=== PATIENT | male | born 1970 | race Caucasian/White ===

== ENCOUNTER 2019-05-04 18:11 | Emergency (ER) | payer OTHER ==
[~2019-05-04] VITALS: Ht 170.2 cm; Wt 90.7 kg
--- NOTE | 2019-05-04 18:59 | ED.ADGEN ---
Past History Past Medical History: Alcoholism, Anxiety, Bipolar, Depression, Hepatitis, Other Smoking: Cigarettes Alcohol Use: Sober Drug Use: None Social History Past alcohol and drug use Adult General Chief Complaint Chief Complaint ".. I been in long term a while....27 yrs.. I don't want to go back.. I ve go t 15 months left.. four months a [employer]... I having a lot of anxiety .. and now some panic attacks... I ve been clean and off drugs since 2012.. I having a lot of new stressors.. [employer] assignment.. since middle of Mar.... 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 [employer].. I ve had Hept C.. got treatment twice.. and that reportedly thats gone.. but I have anxiety, panic attacks, PTSD, some Bipolar .. but with all the new stressors.. I am bouncing of the wall.. I was at [facility].. and just got too much. .. so I came here..." HPI HPI Patient is a 48 year old male inmate who presents with multiple complaints, anxious, feelings of panic, agitation, and complains of malaise. Patient currently a resident of [facility]. Patient does advise he had previous problems with drugs and alcohol. Has been on intermittent medications for bipolar disorder and panic attacks. Patient reports he had hepatitis C- had 2 previous courses of treatment reportedly now cured. Does have some residual scarring of liver with results and chronically low platelets. Patient denies any frequent caffeine use. Patient denies any illicit drug use. Does smoke tobacco. Patient states he does not vape. Review of Systems Review of Systems Constitutional: Denies fever or chills [] Eyes: Denies change in visual acuity, redness, or eye pain [] HENT: Denies nasal congestion or sore throat [] Respiratory: Denies cough or shortness of breath [] Cardiovascular: No additional information not addressed in HPI [] GI: Denies abdominal pain, nausea, vomiting, bloody stools or diarrhea [] : Denies dysuria or hematuria [] Musculoskeletal: Denies back pain or joint pain [] Integument: Denies rash or skin lesions [] Neurologic: Denies headache, focal weakness or sensory changes [] Endocrine: Denies polyuria or polydipsia [] All other systems were reviewed and found to be within normal limits, except as documented in this note. Family History Family History Noncontributory Current Medications Current Medications Current Medications Medications (Trade) Dose Ordered Sig/Kaushik Start Time Stop Time Status Last Admin Dose Admin Lorazepam (Ativan Inj) 2 mg 1X ONCE 05/04/19 20:30 05/04/19 20:31 DC 05/04/19 20:38 2 MG Allergies Allergies Allergies Coded Allergies Type Severity Reaction Last Updated Verified No Known Drug Allergies 05/04/19 No Physical Exam Physical Exam Constitutional: In acute emotional distress, non-toxic appearance. [] HENT: Normocephalic, atraumatic, bilateral external ears normal, oropharynx moist, no oral exudates, nose normal. [] Eyes: PERRLA, EOMI, conjunctiva normal, no discharge. [] Neck: Normal range of motion, no tenderness, supple, no stridor. [] Cardiovascular: Bradycardia Heart rate regular rhythm, no murmur [] Lungs & Thorax: Bilateral breath sounds equal apex with scattered wheezes on auscultation [] Abdomen: Bowel sounds normal, soft, no tenderness, no masses, no pulsatile masses. [] Skin: Warm, dry, no erythema, no rash. [Multiple tattoos. No petechiae Back: No tenderness, no CVA tenderness. [] Extremities: No tenderness, no cyanosis, no clubbing, ROM intact, no edema. [] Neurologic: Alert and oriented X 3, normal motor function, normal sensory function, no focal deficits noted. DTRs +2 patella and brachial. Psychologic: Affect anxious, judgement normal, mood depression.. []No suicidal ideation. No homicidal ideation. Current Patient Data Vital Signs Vital Signs Date Time Temp Pulse Resp B/P (MAP) Pulse Ox O2 Delivery O2 Flow Rate FiO2 05/04/19 21:58 67 16 123/81 (95) 100 Room Air 05/04/19 18:47 98.1 Lab Results Laboratory Tests Test 05/04/19 19:25 05/04/19 20:30 Urine Collection Type Unknown Urine Color Yellow Urine Clarity Clear Urine pH 7.0 Urine Specific [place] 1.020 Urine Protein Neg (NEG-TRACE) Urine Glucose (UA) Neg mg/dL (NEG) Urine Ketones (Stick) Neg mg/dL (NEG) Urine Blood Trace (NEG) Urine Nitrite Neg (NEG) Urine Bilirubin Neg (NEG) Urine Urobilinogen Dipstick 4 mg/dL (0.2 mg/dL) Urine Leukocyte Esterase Neg (NEG) Urine RBC Rare /HPF (0-2) Urine WBC Occ /HPF (0-4) Urine Squamous Epithelial Cells None /LPF Urine Bacteria 0 /HPF (0-FEW) Urine Opiates Screen Neg (NEG) Urine Methadone Screen Neg (NEG) Urine Barbiturates Neg (NEG) Urine Phencyclidine Screen Neg (NEG) Urine Amphetamine/Methamphetamine Neg (NEG) Urine Benzodiazepines Screen Neg (NEG) Urine Cocaine Screen Neg (NEG) Urine Cannabinoids Screen Neg (NEG) Urine Ethyl Alcohol Neg (NEG) White Blood Count 4.3 x10^3/uL (4.0-11.0) Red Blood Count 4.74 x10^6/uL (4.30-5.70) Hemoglobin 14.5 g/dL (13.0-17.5) Hematocrit 43.1 % (39.0-53.0) Mean Corpuscular Volume 91 fL (79-100) Mean Corpuscular Hemoglobin 31 pg (25-35) Mean Corpuscular Hemoglobin Concent 34 g/dL (31-37) Red Cell Distribution Width 14.3 % (11.5-14.5) Platelet Count 87 x10^3/uL (140-400) L Neutrophils (%) (Auto) 68 % (31-73) Lymphocytes (%) (Auto) 20 % (24-48) L Monocytes (%) (Auto) 9 % (0-9) Eosinophils (%) (Auto) 3 % (0-3) Basophils (%) (Auto) 1 % (0-3) Neutrophils # (Auto) 2.9 x10^3uL (1.8-7.7) Lymphocytes # (Auto) 0.8 x10^3/uL (1.0-4.8) L Monocytes # (Auto) 0.4 x10^3/uL (0.0-1.1) Eosinophils # (Auto) 0.1 x10^3/uL (0.0-0.7) Basophils # (Auto) 0.0 x10^3/uL (0.0-0.2) Sodium Level 144 mmol/L (136-145) Potassium Level 4.1 mmol/L (3.5-5.1) Chloride Level 107 mmol/L (98-107) Carbon Dioxide Level 29 mmol/L (21-32) Anion Gap 8 (6-14) Blood Urea Nitrogen 20 mg/dL (8-26) Creatinine 0.9 mg/dL (0.7-1.3) Estimated GFR (Cockcroft-Gault) 89.7 Glucose Level 76 mg/dL (70-99) Calcium Level 8.7 mg/dL (8.5-10.1) Total Bilirubin 0.6 mg/dL (0.2-1.0) Direct Bilirubin 0.2 mg/dL (0.0-0.2) Aspartate Amino Transferase (AST) 27 U/L (15-37) Alanine Aminotransferase (ALT) 25 U/L (16-63) Alkaline Phosphatase 113 U/L (46-116) Troponin I Quantitative < 0.017 ng/mL (0-0.055) Total Protein 7.6 g/dL (6.4-8.2) Albumin 3.8 g/dL (3.4-5.0) EKG EKG I interpretation EKG shows a sinus bradycardia at 58 bpm. No acute morphology. There is some J-point elevation V2 V3 V4 but no contralateral changes.[] Radiology/Procedures Radiology/Procedures [] Course & Med Decision Making Course & Med Decision Making Pertinent Labs and Imaging studies reviewed. (See chart for details) Patient encouraged follow-up at counseling center. Encouraged patient to take a mood stabilizer suspect has a component of bipolar disorder which exacerbates his anxiety, panic attacks and PTSD. Patient return of any concerns. [] Final Impression Final Impression 1. Panic Attack 2. Anxiety Disorder 3. PTSD 4. Bipolar 5. Hx. Hept. C- Treated 6. Thrombocytopenia-87 [] Dragon Disclaimer Dragon Disclaimer This electronic medical record was generated, in whole or in part, using a voice recognition dictation system. FILIBERTO CEBALLOS MD May 04, 2019 18:59
[2019-05-04 19:44] LABS: BARBITURATES NEG (NEG); BENZODIAZEPINES NEG (NEG); CANNABINOIDS NEG (NEG); COCAINE NEG (NEG); METHADONE NEG (NEG); OPIATES NEG (NEG); PHENCYCLIDINE NEG (NEG)
[2019-05-04 19:48] LABS: AMPHETAMINE/METHAMPHETAMINE NEG (NEG)
[2019-05-04 19:58] LABS: BILIRUBIN,URINE NEG (NEG); CLARITY,URINE CLEAR; COLOR,URINE YELLOW; GLUCOSE,URINE NEG (NEG)
[2019-05-04 19:59] LABS: BACTERIA,URINE 0 /HPF (0-FEW); NITRITE,URINE NEG (NEG); RBC,URINE RARE /HPF (0-2); UROBILINOGEN,URINE 4 mg/dL (0.2 mg/dL); WBC,URINE OCC /HPF (0-4)
[2019-05-04 20:49] LABS: BASO % 1 % (0-3); EOS # 0.1 x10^3/uL (0.0-0.7); EOS % 3 % (0-3); HEMATOCRIT 43.1 % (39.0-53.0); HEMOGLOBIN 14.5 g/dL (13.0-17.5); LYMPH # 0.8 x10^3/uL (1.0-4.8); LYMPH % 20 % (24-48); MEAN CORPUSCULAR HEMOGLOBIN 31 pg (25-35); MEAN CORPUSCULAR HGB CONC 34 g/dL (31-37); MEAN CORPUSCULAR VOLUME 91 fL (79-100); MONO # 0.4 x10^3/uL (0.0-1.1); MONO % 9 % (0-9); NEUT # 2.9 x10^3uL (1.8-7.7); NEUT % 68 % (31-73); PLATELET COUNT 87 x10^3/uL (140-400); RED BLOOD COUNT 4.74 x10^6/uL (4.30-5.70); RED CELL DISTRIBUTION WIDTH 14.3 % (11.5-14.5); WHITE BLOOD COUNT 4.3 x10^3/uL (4.0-11.0)
[2019-05-04 21:02] LABS: ALBUMIN 3.8 g/dL (3.4-5.0); CALCIUM 8.7 mg/dL (8.5-10.1); CREATININE 0.9 mg/dL (0.7-1.3); DIRECT BILIRUBIN 0.2 mg/dL (0.0-0.2); GFR 89.7; POTASSIUM 4.1 mmol/L (3.5-5.1); TOTAL BILIRUBIN 0.6 mg/dL (0.2-1.0); TOTAL PROTEIN 7.6 g/dL (6.4-8.2)
[2019-05-04 21:58] VITALS: BP 123/81
--- NOTE | 2019-05-05 02:16 | EKG ---
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
== END 2019-05-04 21:59 | disposition home or self-care (01) ==
LOC: ER 18:11
DX: F41.9 Anxiety disorder, unspecified (principal); F43.10 Post-traumatic stress disorder, unspecified; F31.9 Bipolar disorder, unspecified; D69.6 Thrombocytopenia, unspecified; F10.20 Alcohol dependence, uncomplicated; F17.210 Nicotine dependence, cigarettes, uncomplicated; Y90.0 Blood alcohol level of less than 20 mg/100 ml
CPT/HCPCS: 36415; 80048; 80076; 80307; 81001; 84484; 85025; 93005; 96374; 99285; J2060

== ENCOUNTER 2019-05-26 20:29 | Emergency (ER) | payer OTHER ==
[~2019-05-26] VITALS: Ht 170.2 cm; Wt 93.9 kg
--- NOTE | 2019-05-26 20:33 | PHYS DOC ---
Past History Past Medical History: Alcoholism, Anxiety, Bipolar, Depression, Hepatitis, Other Additional Past Medical Histor: PANIC ATTACKS, PTSD, CIRRHOSIS Additional Past Surgical Histo: KNEE Smoking: Cigarettes Alcohol Use: Sober Drug Use: None Adult General Chief Complaint Chief Complaint: RIB PAIN .." I got bad rib pain... and anxiety... ".." The pain just started all of sudden... last week...its been constant.. I got to thinking about it.. ".. I am having a panic attack.. 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 Pt. rates pain at times severe when he moves the wrong way. Pt. states it like when you fracture a rib or pull a muscle. . Patient denies any specific trauma. No history of previous cardiac problems. Pain is reproducible on palpation of chest wall. Patient has a known history of anxiety and panic disorder. Patient is extremely anxious. Patient does still smoke. Patient has followed at the counseling center previously. Review of Systems Review of Systems Constitutional: Denies fever or chills [] Eyes: Denies change in visual acuity, redness, or eye pain [] HENT: Denies nasal congestion or sore throat [] Respiratory: Complaints of chest wall pain. Cardiovascular: No additional information not addressed in HPI [] GI: Denies abdominal pain, nausea, vomiting, bloody stools or diarrhea [] : Denies dysuria or hematuria [] Musculoskeletal: Denies back pain or joint pain [] Integument: Denies rash or skin lesions [] Neurologic: Denies headache, focal weakness or sensory changes [] Endocrine: Denies polyuria or polydipsia [] All other systems were reviewed and found to be within normal limits, except as documented in this note. Family History Family History Noncontributory Current Medications Current Medications See nursing for home medications Allergies Allergies Allergies Coded Allergies Type Severity Reaction Last Updated Verified No Known Drug Allergies 05/04/19 No Physical Exam Physical Exam Constitutional: Well developed, well nourished, in acute motion normal distress, non-toxic appearance. [] HENT: Normocephalic, atraumatic, bilateral external ears normal, oropharynx moist, no oral exudates, nose normal. Tattoos Eyes: PERRLA, EOMI, conjunctiva normal, no discharge. [] Neck: Normal range of motion, no tenderness, supple, no stridor. [] Cardiovascular:Heart rate regular rhythm, no murmur [] Lungs & Thorax: Bilateral breath sounds equal at apexes with scattered wheezes on auscultation [ The]patient has palpable point tenderness Lt. chest wall. Abdomen: Bowel sounds normal, soft, no tenderness, no masses, no pulsatile masses. [] Skin: Warm, dry, no erythema, no rash. Multiple tattoos Back: No tenderness, no CVA tenderness. [] Extremities: No tenderness, no cyanosis, no clubbing, ROM intact, no edema. [] No cording appreciated Neurologic: Alert and oriented X 3, normal motor function, normal sensory fu nction, no focal deficits noted. [] Psychologic: Affect very anxious, judgement normal, mood normal. [] EKG EKG My interpretation EKG shows a sinus rhythm at 61 bpm. Some mild right axis deviation. Some nonspecific contour changes. No findings acute STEMI of contralateral changes.[] Radiology/Procedures Radiology/Procedures [][place] [address] IMAGING REPORT Signed PATIENT: FREDY BADILLO ACCOUNT: [id number] : 1970 LOCATION: ER AGE: 48 SEX: M EXAM STATUS: REG ER ORD. PHYSICIAN: FILIBERTO CEBALLOS MD REASON: Left side chest and rib pain. No injury, Hx smoker PROCEDURE: CHEST PA & LATERAL CHEST PA LATERAL History: Left-sided chest and rib pain. Comparison: None. Findings: No consolidation or pleural effusion. Normal heart size. No pneumothorax. Left lower lobe calcified granuloma. Chronic lower thoracic anterior vertebral body wedging. Impression: 1. No acute cardiopulmonary process. Electronically signed by: Moncho Sanchez DO (05/26/2019 9:51 PM) [facility] DICTATED AND SIGNED BY: MONCHO SANCHEZ DO DATE: 05/26/19 215 CC: FILIBERTO CEBALLOS MD; PCP,NO ~ Course & Med Decision Making Course & Med Decision Making Pertinent Labs and Imaging studies reviewed. (See chart for details) Patient to keep follow-up at counseling center. Patient to take a daily aspirin. Patient encouraged to stop smoking. Patient take Tylenol and ibuprofen for chest wall pain. Must follow-up primary care. Return if any concerns. [] Impression: 1. Chest Wall Pain 2. Anxiety Disorder Dragon Disclaimer Dragon Disclaimer This electronic medical record was generated, in whole or in part, using a voice recognition dictation system. Departure Departure: Disposition: HOME/RESIDENCE PRIOR TO ADM Condition: STABLE Referrals: PCP,NO (PCP) Dragon Disclaimer This chart was dictated in whole or in part using Voice Recognition software in a busy, high-work load, and often noisy Emergency Department environment. It may contain unintended and wholly unrecognized errors or omissions. Dragon Disclaimer This chart was dictated in whole or in part using Voice Recognition software in a busy, high-work load, and often noisy Emergency Department environment. It may contain unintended and wholly unrecognized errors or omissions. FILIBERTO CEBALLOS MD May 26, 2019 20:33
[2019-05-26 20:38] VITALS: BP 157/84
[2019-05-26] MEDS ORDERED: IV RINGERS SOLUTION,LACTATED 1,000 ML IV SCH (20:46)
[2019-05-26] MEDS ORDERED: ASPIRIN 81 MG TAB.CHEW PO ONE (21:00)
[2019-05-26] MEDS ORDERED: KETOROLAC 60 MG/2 ML VIAL. IM ONE (21:00)
[2019-05-26] MEDS ORDERED: LORazepam 1 MG TABLET PO ONE (21:00)
[2019-05-26 21:11] LABS: BASO % 1 % (0-3); EOS # 0.1 x10^3/uL (0.0-0.7); EOS % 3 % (0-3); HEMATOCRIT 41.9 % (39.0-53.0); HEMOGLOBIN 14.1 g/dL (13.0-17.5); LYMPH # 0.7 x10^3/uL (1.0-4.8); LYMPH % 16 % (24-48); MEAN CORPUSCULAR HEMOGLOBIN 30 pg (25-35); MEAN CORPUSCULAR HGB CONC 34 g/dL (31-37); MEAN CORPUSCULAR VOLUME 91 fL (79-100); MONO # 0.3 x10^3/uL (0.0-1.1); MONO % 8 % (0-9); NEUT # 2.9 x10^3uL (1.8-7.7); NEUT % 72 % (31-73); PLATELET COUNT 93 x10^3/uL (140-400); RED BLOOD COUNT 4.62 x10^6/uL (4.30-5.70); RED CELL DISTRIBUTION WIDTH 14.1 % (11.5-14.5); WHITE BLOOD COUNT 4.1 x10^3/uL (4.0-11.0)
[2019-05-26 21:31] LABS: CREATININE 0.9 mg/dL (0.7-1.3); DIRECT BILIRUBIN 0.2 mg/dL (0.0-0.2); GFR 89.7; MAGNESIUM 2.3 mg/dL (1.8-2.4); POTASSIUM 3.9 mmol/L (3.5-5.1); TOTAL BILIRUBIN 0.9 mg/dL (0.2-1.0); TOTAL PROTEIN 7.6 g/dL (6.4-8.2)
[2019-05-26 21:36] LABS: BARBITURATES NEG (NEG); BENZODIAZEPINES NEG (NEG); CANNABINOIDS NEG (NEG); COCAINE NEG (NEG); METHADONE NEG (NEG); OPIATES NEG (NEG); PHENCYCLIDINE NEG (NEG)
[2019-05-26 21:36] LABS: BILIRUBIN,URINE NEG (NEG); CLARITY,URINE CLEAR; COLOR,URINE YELLOW; GLUCOSE,URINE NEG (NEG)
[2019-05-26 21:37] LABS: BACTERIA,URINE 0 /HPF (0-FEW); NITRITE,URINE NEG (NEG); RBC,URINE OCC /HPF (0-2); SQUAMOUS EPITHELIAL CELL,UR OCC /LPF; UROBILINOGEN,URINE 0.2 mg/dL (0.2 mg/dL); WBC,URINE OCC /HPF (0-4)
[2019-05-26 21:38] LABS: AMPHETAMINE/METHAMPHETAMINE NEG (NEG)
--- NOTE | 2019-05-26 21:54 | RAD ---
CHEST PA LATERAL History: Left-sided chest and rib pain. Comparison: None. Findings: No consolidation or pleural effusion. Normal heart size. No pneumothorax. Left lower lobe calcified granuloma. Chronic lower thoracic anterior vertebral body wedging. Impression: 1. No acute cardiopulmonary process. Electronically signed by: Moncho Olvera DO (05/26/2019 9:51 PM) [facility]
[2019-05-27 10:44] LABS: THYROID STIM HORMONE (TSH) 2.197 uIU/mL (0.358-3.740)
--- NOTE | 2019-05-29 12:18 | EKG ---
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
== END 2019-05-26 22:40 | disposition home or self-care (01) ==
LOC: ER 20:29
DX: R07.89 Other chest pain (principal); F41.9 Anxiety disorder, unspecified; F31.9 Bipolar disorder, unspecified; F10.20 Alcohol dependence, uncomplicated; F43.10 Post-traumatic stress disorder, unspecified; F17.210 Nicotine dependence, cigarettes, uncomplicated; Y90.0 Blood alcohol level of less than 20 mg/100 ml
CPT/HCPCS: 36415; 71046; 80048; 80061; 80076; 80307; 81001; 82550; 83690; 83735; 83880; 84443; 84484; 85025; 85379; 85610; 85730; 93005; 96360; 96372; 99285; J1885; J7120